=== PATIENT | female | born 1975 | race African-American/Black ===

== ENCOUNTER 2017-06-14 12:31 | Outpatient (CLI) | payer BC ==
--- NOTE | 2017-06-14 15:07 | ULT ---
BILATERAL LOWER EXTREMITY VENOUS DOPPLER ULTRASOUND: Date: 06/14/17 HISTORY: Bilateral lower extremity pain/leg pain. TECHNIQUE: Crook scale ultrasound with color flow and spectral Doppler imaging of the deep venous systems of the lower extremities was performed bilaterally. FINDINGS: There is good flow, compression, and augmentation noted in the common femoral, femoral, deep femoral, popliteal, posterior tibial, and greater saphenous veins on either side. IMPRESSION: No evidence of deep venous thrombosis in either lower extremity. POS: [facility]
--- NOTE | 2017-06-14 15:18 | RAD ---
RIGHT KNEE TWO VIEWS: History: Right knee pain. FINDINGS/IMPRESSION: No fracture or dislocation or bony destruction is seen. No significant osteophytosis is identified. POS: [facility]
--- NOTE | 2017-06-14 15:35 | RAD ---
TWO VIEWS LUMBAR SPINE: Date: 06-14-17 Comparison: 03-19-17 History: Inflammatory polyarthropathy. FINDINGS: There is a mild to moderate degree of lumbar spine levoscoliosis centered at the L3-4 level, slightly more prominent than on the 03-19-17 exam. There is a transitional vertebral body at the lumbosacral j unction. Lateral imaging demonstrates normal vertebral body height and alignment. No acute osseous ab normality. IMPRESSION: No acute osseous abnormality seen. POS: [facility]
--- NOTE | 2017-06-14 15:40 | RAD ---
THREE VIEWS OF THE LEFT KNEE: Indication: Left knee pain. FINDINGS: There is mild osteophytosis of the patellofemoral compartment. No acute fracture or subluxation is ev ident. No joint capsular distention is noted. IMPRESSION: Mild patellofemoral osteoarthrosis. POS: [facility]
== END 2017-06-14 12:32 | disposition home or self-care (01) ==
LOC: ULT 12:31
PROVIDERS: ATTEND Internal Medicine Rheumatology
DX: M06.4 Inflammatory polyarthropathy (principal); I82.493 Acute embolism and thrombosis of other specified deep vein of lower extremity, bilateral; M25.562 Pain in left knee; M17.12 Unilateral primary osteoarthritis, left knee
CPT/HCPCS: 72100; 93970

== ENCOUNTER 2017-07-04 15:03 | Outpatient (CLI) | payer BC ==
--- NOTE | 2017-07-04 16:23 | MRI ---
MRI OF THE LEFT KNEE 07/04/17 PROVIDED CLINICAL HISTORY: Left knee pain. FINDINGS: The anterior cruciate ligament, posterior cruciate ligament, medial collateral ligament and lateral c ollateral ligamentous complex demonstrates an intact MR appearance, as does the extensor mechanism. The medial and lateral menisci demonstrate no evidence for tear. No focal articular cartilage defect is apparent. The amount of fluid within the knee joint appears physiologic. There is a small Huber's cyst. There i s mild signal alteration involving the lateral infrapatellar fat. IMPRESSION: 1. No evidence for internal derangement. 2. Small Huber's cyst. 3. Mild signal alteration involving the lateral infrapatellar fat, which can be seen in the sett ing of a patellar tracking abnormality. POS: [facility]
--- NOTE | 2017-07-04 16:40 | MRI ---
MRI OF THE RIGHT KNEE 07/04/17 PROVIDED CLINICAL HISTORY: Right knee pain. FINDINGS: The anterior cruciate ligament, posterior cruciate ligament, medial collateral ligament and lateral c ollateral ligamentous complex demonstrate an intact MR appearance as does the extensor mechanism. The medial and lateral menisci demonstrate no evidence for tear. There is a small knee joint effusion. No focal concerning regional marrow of muscular signal abnormal ity is apparent. IMPRESSION: 1. No evidence for internal derangement. 2. Small knee joint effusion. POS: [facility]
== END 2017-07-04 15:04 | disposition home or self-care (01) ==
LOC: MRI 15:03
PROVIDERS: ATTEND Internal Medicine Rheumatology
DX: M06.4 Inflammatory polyarthropathy (principal); M25.461 Effusion, right knee; M71.22 Synovial cyst of popliteal space [Baker], left knee; R93.6 Abnormal findings on diagnostic imaging of limbs

== ENCOUNTER 2017-12-24 11:49 | Outpatient (CLI) | payer BC | END 2017-12-24 11:50 | disposition home or self-care (01) | LOC: BICMAMMO 11:49 | PROVIDERS: ATTEND Obstetrics & Gynecology | DX: Z12.31 Encounter for screening mammogram for malignant neoplasm of breast (principal); R92.1 Mammographic calcification found on diagnostic imaging of breast | CPT/HCPCS: 77063; 77067 ==

== ENCOUNTER 2019-01-23 16:15 | Inpatient (IN) | payer BC ==
[2019-01-23 16:04] VITALS: BMI 25.9
[2019-01-31 08:31] LABS: Hemoglobin 13.9 g/dL (12.0-16.0); Mean Corpuscular HGB CONC 32.8 g/dL (32.0-36.0); Mean Corpuscular Hemoglobin 30.8 pg (27.0-31.0); Mean Corpuscular Volume 94.1 fL (78.0-98.0); Mean Platelet Volume 8.5 fL (7.4-10.4); Platelet Count 205 thou/uL (130-400); Red Blood Cell (RBC) Count 4.51 mill/uL (4.20-5.40); White Blood Cell (WBC) Count 3.7 thou/uL (4.8-10.8)
--- NOTE | 2019-02-04 14:16 | HP ---
REASON FOR ADMISSION: Chronic pelvic pain, menorrhagia, fibroids, and endometriosis. SCHEDULED PROCEDURE: Total laparoscopic hysterectomy with bilateral salpingectomy. HISTORY OF PRESENT ILLNESS: Ms. Murry is a 43-year-old, 1, para 1, who has a long history of chronic pelvic pain, dyspareunia, menorrhagia, and a history of endometriosis. She desires definitive surgical management. She has failed medical management in the past. 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 No STD history. Negative Pap. Negative high-risk HPV in December of 2018. PAST MEDICAL HISTORY: Significant for anxiety and depression. PAST SURGICAL HISTORY: Cryosurgery of the cervix. MEDICATIONS: 1. Bupropion. 2. Sertraline. 3. Temazepam. 4. Triazolam. ALLERGIES: NONE. SOCIAL HISTORY: Denies tobacco, alcohol, or IV drug abuse. FAMILY HISTORY: Noncontributory. REVIEW OF SYSTEMS: Noncontributory. PHYSICAL EXAMINATION: GENERAL: Black female. VITAL SIGNS: Height 5 feet 4 inches, weight 160, BMI 27.5, blood pressure 114/74, pulse 64, respirations 18. HEENT: Within normal limits. LUNGS: Clear to auscultation bilaterally. HEART: Regular rate and rhythm. BREASTS: No masses bilaterally. ABDOMEN: Soft and nontender. No rebound or guarding. : Vulva was without lesions. Vagina was without discharge. Cervix was parous. Uterus was anteverted, irregular, 8 to 9 weeks size, tender on exam. No adnexal masses noted. EXTREMITIES: Without clubbing, cyanosis, or edema. IMPRESSION: Chronic pelvic pain, history of endometriosis and fibroids with dyspareunia and menorrhagia, desiring definitive surgical management. PLAN: We will proceed with total laparoscopic hysterectomy and bilateral salpingectomy at [facility]. We will administer appropriate antibiotic and DVT prophylaxis. Job ID: [id number]
[2019-02-05] MEDS ORDERED: Famotidine/PF 20 mg/2ml Vial ONE (06:17)
[2019-02-05] MEDS ORDERED: Gabapentin 300 MG CAP ONE (06:17)
[2019-02-05] MEDS ORDERED: CeleCOXIB 100 MG CAP ONE (06:18)
[2019-02-05] MEDS ORDERED: ceFAZolin Sodium (SDC) 2 GM/100 ML BAG ONE (06:18)
[2019-02-05] MEDS ORDERED: Fentanyl 100 MCG/2 ML VIAL ONE ×3 (06:35→10:46)
[2019-02-05] MEDS ORDERED: Midazolam HCl 2 mg/2 ml Vial ONE ×2 (06:35→07:23)
[2019-02-05] MEDS ORDERED: Bupivacaine HCl 0.5%/Epinephrine 1:200,000/PF 30 ml Vial ONE (07:01)
[2019-02-05] MEDS ORDERED: Bisacodyl 10 MG SUPP PR PRN (07:44)
[2019-02-05] MEDS ORDERED: Zolpidem Tartrate 5 MG TAB PO PRN (07:44)
[2019-02-05] MEDS ORDERED: Promethazine HCl 25 MG/ML VIAL IM PRN ×2 (07:44→09:42)
[2019-02-05] MEDS ORDERED: diphenhydrAMINE 25 MG CAP PO PRN (07:44)
[2019-02-05] MEDS ORDERED: HYDROcodone/Acetaminophen 5/325 mg Tablet PO PRN ×2 (07:44)
[2019-02-05] MEDS ORDERED: Ondansetron PF 4 MG/2 ML Vial IVP PRN (07:44)
[2019-02-05] MEDS ORDERED: Morphine 4 MG/ML VIAL SLOW IVP PRN (07:44)
[2019-02-05] MEDS ORDERED: Simethicone Chewable 80 MG TAB PO PRN (07:44)
[2019-02-05] MEDS ORDERED: Promethazine HCl 25 MG/ML VIAL SLOW IVP PRN (09:42)
[2019-02-05] MEDS ORDERED: Ondansetron HCl/PF 4 MG/2 ML Vial IVP PRN (09:42)
[2019-02-05] MEDS ORDERED: Ketorolac Tromethamine 30 MG/ML VIAL IVP SCH (12:00)
[2019-02-05] MEDS: Sodium Chloride 0.9% 1,000 ML IV SCH ×3 (12:44→23:47)
[2019-02-05] MEDS: Acetaminophen 1,000 MG in Premix Bag 1 BAG IVPB SCH ×3 (13:04→23:52)
--- NOTE | 2019-02-05 13:45 | OP ---
DATE OF PROCEDURE: 02/05/2019 PREOPERATIVE DIAGNOSES: Dysmenorrhea, pelvic pain, menorrhagia, and endometriosis. POSTOPERATIVE DIAGNOSES: Dysmenorrhea, pelvic pain, menorrhagia, and endometriosis. PROCEDURE PERFORMED: Total laparoscopic hysterectomy, bilateral salpingectomy. COMPUTER NETWORK SUPPORT SPECIALIST: ELVIE Dutton. ANESTHESIA: General endotracheal. ESTIMATED BLOOD LOSS: Less than 50 mL. COMPLICATIONS: None. DRAINS: Myers to gravity. OPERATIVE FINDINGS: 1. Ten-week size uterus consistent with adenomyosis and small fibroids. 2. Normal-appearing tubes and ovaries bilaterally. 3. Hemostasis, clear urine. COUNTS: Correct at the end of the procedure. DISPOSITION: Recovery in good condition. DESCRIPTION OF PROCEDURE: General endotracheal anesthesia achieved, the patient prepped and draped in dorsal lithotomy position in Eugenio stirrups. Bladder drained of clear urine. Myers catheter placed. Cervix identified, grasped with single-tooth tenaculum, sounded to 8 cm. JOSE manipulator with 3.5 vaginal hand binder stripper and a 6 cm obturator placed without difficulty. Railway Track Plant Operator changed his gloves after removing the speculum and tenaculum, and turned his attention to abdominal portion of the procedure. A 5 mL of Marcaine injected at the base of umbilicus. A 12 mm skin incision was made. Veress needle was placed inside the abdominal cavity, insufflation was carried out with carbon dioxide at max pressure of 15. Once this was achieved, a 12 mm Kent balloon tipped cannula was introduced and pulled up snugly against the anterior abdominal wall. Laparoscope was introduced in confirmation of entry into the peritoneal cavity without trauma to the underlying viscera noted. The patient was placed in steep Trendelenburg position, and right and left lateral to the epigastric vessels Da Alfredo ports were placed under direct visualization as well as an 11 mm teacher's assistant port in the right upper quadrant. Monopolar scissors placed in the right hand and bipolar fenestrated forceps in the left. Attention was turned to the right adnexa where the medial salpinx was coagulated, transected up to the level of the uterus. The fallopian tube excised and removed through the teacher's assistant port. Utero-ovarian ligament was then coagulated and transected through the broad and the round, and down to the level of the internal cervical os. Vesicouterine peritoneum was incised sharply and dissected off the lower uterine segment anteriorly. Skeletonization of the uterine vessels carried out these were coagulated. Attention was turned to the patient's left, where the identical procedure was carried out. Again, coagulated and transected the mesosalpinx, removing the fallopian tube, coagulating and transecting the utero-ovarian broad and round down the level of internal cervical os. Vesicouterine peritoneum incised sharply anteriorly and the bladder further dissected off the lower uterine segment, cervix, and upper vagina. Skeletonization of the uterine vessels carried out and these were transected. Vagina was entered anteriorly at 12 o'clock after backfilling the bladder and identifying its margins noted to be well away from the apex of the vagina. Excision was extended from 12 to 3 and from 12 to 9. Uterine vessels were coagulated and transected bilaterally, and the incision then carried from 9 to 6 and from 3 to 6. Specimen was amputated and pulled into the vagina, maintained pneumoperitoneum. Inspection of the cuff revealed it to be dry and good hemostasis. Cuff was closed using a running locking 0 PDS suture lock in a running continuous manner from right to left and back to right. Suction irrigation was carried out and again good hemostasis was noted. The ureters had been identified, noted to be well lateral to the surgical field. Tisseel was applied across the raw surfaces to assure hemostasis. The abdomen was desufflated of carbon dioxide after removing the Da Alfredo instruments, undocking the da Alfredo and removing the laparoscopic trocars. The fascia was reapproximated at the umbilicus using a 0 Vicryl on a UR5 needle. Skin was reapproximated x4 using 4-0 Monocryl and Dermabond. Specimen removed from the vagina and the vagina inspected and noted to be dry, intact, no lacerations from uterine manipulation. The patient was awakened, extubated, taken to recovery room in good condition. Job ID: [id number]
[2019-02-05] MEDS: Ketorolac Tromethamine 30 MG/ML VIAL IVP SCH ×2 (15:22→20:49)
[2019-02-05] MEDS ORDERED: Rocuronium Bromide 10 MG/ML (10ML VIAL) ONE (16:20)
[2019-02-05] MEDS ORDERED: Lidocaine 1% PF 5 ML VIAL ONE (16:20)
[2019-02-05] MEDS ORDERED: Ketorolac Tromethamine 30 MG/ML VIAL ONE (16:20)
[2019-02-05] MEDS ORDERED: Ondansetron PF 4 MG/2 ML Vial ONE (16:20)
[2019-02-05] MEDS ORDERED: Dexamethasone 20 MG/5 ML VIAL ONE (16:20)
[2019-02-05] MEDS ORDERED: PROPOFOL 200 MG/20 ML VIAL ONE (16:20)
[2019-02-05] MEDS ORDERED: Glycopyrrolate 0.2 MG/ML 5 ML SYRINGE ONE (16:20)
[2019-02-05] MEDS ORDERED: Gabapentin 300 MG CAP PO SCH ×2 (19:00→20:00)
[2019-02-05] MEDS ORDERED: CeleCOXIB 100 MG CAP PO SCH ×2 (19:00→20:00)
[2019-02-05] MEDS ORDERED: Temazepam 15 MG CAP PO SCH (21:00)
[2019-02-06] MEDS ORDERED: Sodium Chloride 0.9% 10 ML ONE (02:34)
[2019-02-06] MEDS: Ketorolac Tromethamine 30 MG/ML VIAL IVP SCH ×2 (02:54→08:54)
[2019-02-06] MEDS: Acetaminophen 1,000 MG in Premix Bag 1 BAG IVPB SCH (06:05)
[2019-02-06 07:59] LABS: Hemoglobin 11.1 g/dL (12.0-16.0); Mean Corpuscular HGB CONC 33.1 g/dL (32.0-36.0); Mean Corpuscular Hemoglobin 31.5 pg (27.0-31.0); Mean Corpuscular Volume 95.2 fL (78.0-98.0); Mean Platelet Volume 8.5 fL (7.4-10.4); Platelet Count 144 thou/uL (130-400); RBC Distribution Width 11.9 % (11.5-14.5); Red Blood Cell (RBC) Count 3.53 mill/uL (4.20-5.40); White Blood Cell (WBC) Count 7.7 thou/uL (4.8-10.8)
--- NOTE | 2019-02-06 09:01 | DIS ---
DATE OF ADMISSION: 02/05/2019 DATE OF DISCHARGE: 02/06/2019 TIME OF SERVICE: 0840 hours. PRIMARY ADMISSION INDICATION: Menorrhagia, pelvic pain, endometriosis, fibroids. PRIMARY AND HOSPITAL PROCEDURE: Total laparoscopic hysterectomy, bilateral salpingectomy. SUMMARY OF HOSPITAL COURSE: The patient was admitted on 02/05 and underwent aforementioned surgery at approximately 0800 hours on 02/05. Postoperatively, she is doing well. Postoperative day #1, hematocrit 33.6% with normal white count, normal platelet count. PHYSICAL EXAMINATION: VITAL SIGNS: Temperature 98.4, T-max 99.0, pulse 60, respirations 20, blood pressure 97/54. Urine output excellent, voiding with ease. LUNGS: Clear to auscultation bilaterally. HEART: Regular rate and rhythm. ABDOMEN: Soft and nontender. Incisions are packed, dry, and nontender. She has bowel sounds in all 4 quadrants. Perineum is dry. EXTREMITIES: No clubbing, cyanosis, or edema. IMPRESSION: Doing well less than 24 hours status post total laparoscopic hysterectomy. PLAN: Discharge home on [place] and ibuprofen, sent electronically to the patient's pharmacy. The patient has scheduled followup in 2 to 6 weeks at [facility]. Job ID: [id number]
--- NOTE | 2019-02-06 10:05 | PQF ---
COMPA SANCHEZ DANIEL D MD [id number] [address] [place] [address] [id number] CLINICAL DOCUMENTATION IMPROVEMENT CLARIFICATION FORM: ICD-10 Updated PLEASE DO AN ADDENDUM TO THE PROGRESS NOTE WITH ANY DOCUMENTATION UPDATES OR ADDITIONS AND CARRY THROUGH TO DC SUMMARY. THANK YOU. DATE: 02-06-19 ATTN: DR. TOM Please exercise your independent, professional judgment in responding to the clarification form. Clinical indicators are provided on the bottom of this form for your review Please check appropriate box(s): [ ] Major Depressive Disorder with anxiety Status: [ ] Single Episode [ ] Current episode [ ] In remission Severity [ ] mild [ ] moderate [ ] Severe [ ] Persistent Mood Disorder [ ] Other diagnosis [ ] Unable to determine - I dont treat the patient for this disorder and cannot opine For continuity of documentation, please document condition throughout progress notes and discharge summary. Thank You. CLINICAL INDICATORS - SIGNS / SYMPTOMS / LABS H&P ([place]): PMH - anxiety and depression RISK FACTORS H&P ([place]): PMH - anxiety and depression TREATMENT: 02-05 MAR - Medications - Zoloft 50mg PO HS 02-05 Thank you, Irma (This form is maintained as a part of the permanent medical record) 2015 [employer]. All Rights Reserved Irma Calhoun RN, BS [email or web address] [employer] [facility]
[2019-02-06 11:18] VITALS: BP 106/55; TEMP 99
[2019-02-06] MEDS ORDERED: Ibuprofen 800 MG TAB PO SCH (14:00)
== END 2019-02-06 12:55 | disposition home or self-care (01) | DRG 743 ==
LOC: SURG A 02-05 06:00 → 3SE 02-05 12:33
PROVIDERS: ADMIT Obstetrics & Gynecology; ATTEND Obstetrics & Gynecology
PROC: 0UT9FZZ Resection of Uterus, Via Natural or Artificial Opening With Percutaneous Endoscopic Assistance (ICD-10-PCS; principal; 2019-02-05)
PROC: 0UB78ZZ Excision of Bilateral Fallopian Tubes, Via Natural or Artificial Opening Endoscopic (ICD-10-PCS; 2019-02-05)
DX: D25.1 Intramural leiomyoma of uterus (principal); N80.3 Endometriosis of pelvic peritoneum; D28.2 Benign neoplasm of uterine tubes and ligaments; F41.9 Anxiety disorder, unspecified; F32.9 Major depressive disorder, single episode, unspecified; N80.0 Endometriosis of uterus
CPT/HCPCS: 36415; 85027; 86850; 86900; 86901; 88307; J0131; J0670; J0690; J1100; J1885; J2001; J2250; J2405; J2704; J3010; S0028

== ENCOUNTER 2019-01-31 07:38 | Outpatient (CLI) | payer BC ==
[2019-01-31 08:37] LABS: BHCG - Serum Negative (NEGATIVE); Pregs Control Background? CLEAR/WHITE (CLR/WHITE); Pregs Control Bar Appear? YES (CONTROL BAR)
== END 2019-01-31 07:39 | disposition home or self-care (01) ==
LOC: LABBT 07:38
PROVIDERS: ATTEND Obstetrics & Gynecology
DX: Z01.812 Encounter for preprocedural laboratory examination (principal); D25.9 Leiomyoma of uterus, unspecified; N80.9 Endometriosis, unspecified
CPT/HCPCS: 84703

== ENCOUNTER 2019-05-24 18:14 | Emergency (ER) | payer BC ==
[2019-05-24] MEDS ORDERED: hydrOXYzine 25 MG TAB ONE (19:23)
== END 2019-05-24 19:30 | disposition home or self-care (01) ==
LOC: ERS 18:14
DX: F43.9 Reaction to severe stress, unspecified (principal); F32.9 Major depressive disorder, single episode, unspecified; Z79.899 Other long term (current) drug therapy
CPT/HCPCS: 99283

== ENCOUNTER 2022-08-24 10:35 | Emergency (ER) | payer BC ==
[2022-08-24 11:25] LABS: #Basophils 0.1 thou/uL (0.0-0.2); #Monocytes 0.5 thou/uL (0.11-0.59); #Neutrophils 2.4 thou/uL (1.40-6.50); %Basophils 1.2 % (0.0-1.0); %Eosinophils 0.9 % (0.0-10.0); %Lymphocytes 40.5 % (21.0-51.0); %Monocytes 9.4 % (0.0-10.0); %Neutrophils 48.1 % (42.0-75.0); Hemoglobin 13.6 g/dL (12.0-16.0); Mean Corpuscular HGB CONC 33.6 g/dL (32.0-36.0); Mean Corpuscular Hemoglobin 32.7 pg (27.0-31.0); Mean Corpuscular Volume 97.5 fl (78.0-98.0); Mean Platelet Volume 8.7 fL (7.4-10.4); Platelet Count 202 10x3/uL (130-400); RBC Distribution Width 12.1 % (11.5-14.5); Red Blood Cell (RBC) Count 4.16 mill/uL (4.20-5.40)
[2022-08-24 11:34] LABS: BHCG - Serum Negative (NEGATIVE); Pregs Control Background? CLEAR/WHITE (CLR/WHITE); Pregs Control Bar Appear? YES (CONTROL BAR)
[2022-08-24 11:48] LABS: ALT (SGPT) 17 U/L (8-55); AST (SGOT) 18 U/L (5-34); Albumin 3.7 g/dL (3.5-5.0); Alkaline Phosphatase 80 U/L (40-110); Anion Gap 12 mmol/L (10-20); BUN (Urea Nitrogen) 9 mg/dL (7.0-18.7); Bilirubin, Total 0.5 mg/dL (0.2-1.2); Calc. Creatinine Clearance 0 mL/min (70-130); Calcium 9.1 mg/dL (7.8-10.44); Carbon Dioxide 22 mmol/L (22-29); Chloride 106 mmol/L (98-107); Estimated GFR 95; Globulin 3.2 g/dL (2.4-3.5); Glucose 80 mg/dL (70-105); Potassium 4.2 mmol/L (3.5-5.1); Protein, Total 6.9 g/dL (6.0-8.3); Sodium 136 mmol/L (136-145)
[2022-08-24 12:49] LABS: Acetaminophen Less than 10.0 mcg/mL (10.0-30.0); Alcohol Less than 10 mg/dL (Less than 10); Salicylate Less than 8.0 mg/dL (15.0-30.0)
[2022-08-24 13:32] LABS: Bilirubin Negative (Negative); Blood, Urine Negative (Negative); Clarity Clear (Clear); Glucose, Urine (Dipstick) Normal (Negative); Ketone, Urine Negative (Negative); Leukocyte Negative Leu/uL (Negative); Nitrite Negative (Negative); Protein, Urine (Dipstick) Negative (Neg-Trace); Specific Gravity, Urine 1.013 (1.002-1.036); Urobilinogen Normal mg/dL (Less than 2); pH, Urine 5.5 (5.0-9.0)
[2022-08-24 13:40] LABS: Amphetamine Not Detected (NotDetected); Barbiturates Screen Not Detected (NotDetected); Benzodiazepine Screen Detected (NotDetected); Cocaine Metabolite Screen Not Detected (NotDetected); Methadone Not Detected (NotDetected); Methamphetamine Not Detected (NotDetected); Opiate Screen Not Detected (NotDetected); Oxycodone Screen Not Detected (NotDetected); Phencyclidine (PCP) Not Detected (NotDetected); THC/Cannabinoid Screen Detected (NotDetected); Tricyclic Screen Not Detected (NotDetected)
== END 2022-08-24 19:52 | disposition home or self-care (01) ==
LOC: ERS 10:35
DX: R07.9 Chest pain, unspecified (principal); F32.A Depression, unspecified
CPT/HCPCS: 36415; 71045; 80053; 80306; 80307; 81003; 84484; 84703; 85025; 93005

== ENCOUNTER 2023-12-25 11:24 | Outpatient (CLI) | payer BC | END 2023-12-25 11:25 | disposition home or self-care (01) | LOC: RAD 11:24 | PROVIDERS: ATTEND Family Medicine | DX: S09.93XA Unspecified injury of face, initial encounter (principal) | CPT/HCPCS: 70150 ==

== ENCOUNTER 2024-01-25 13:54 | Emergency (ER) | payer BC | END 2024-01-25 16:35 | disposition home or self-care (01) | LOC: ERS 13:54 | DX: G43.909 Migraine, unspecified, not intractable, without status migrainosus (principal); Z79.899 Other long term (current) drug therapy | CPT/HCPCS: 96372; 99283; J1885 ==